=== PATIENT | male | born 1965 | race Caucasian/White ===

== ENCOUNTER 2016-09-06 17:52 | Emergency (ER) | payer SELFPAY ==
[~2016-09-06] VITALS: Ht 167.6 cm; Wt 85.7 kg
--- NOTE | 2016-09-06 18:07 | NUR ---
Venecia from [facility] due to abnormal H&H. Patient is aao3, appears in no acute distress noted. Respiration even and unlabored. Patient denies pain or discomfort. SKin is warm to touch and non diaphoretic. Afebrile. No chest pain, no n/v, no dizziness. Pt noted with ble wound. Will cont to monitor
--- NOTE | 2016-09-06 18:35 | NUR ---
iv accessed to left hand. blood sample sent to lab
[2016-09-06 18:40] LABS: BASOPHILS # (AUTO) 0.1 /CMM (0.0-0.2); BASOPHILS % (AUTO) 0.7 % (0.0-2.0); EOSINOPHILS # (AUTO) 0.2 /CMM (0.0-0.7); EOSINOPHILS % (AUTO) 2.7 % (0.0-6.0); HEMATOCRIT 26 % (39-51); HEMOGLOBIN 8.7 g/dL (13.5-17.5); LYMPHOCYTES % (AUTO) 13.6 % (20.0-44.0); MEAN CORPUSCULAR HEMOGLOBIN 27 PG (26.0-33.0); MEAN CORPUSCULAR HGB CONC 33 g/dl (31.0-36.0); MEAN CORPUSCULAR VOLUME 83 fL (80-96); MONOCYTES # (AUTO) 0.6 /CMM (0.1-1.30); MONOCYTES % (AUTO) 8.1 % (2.0-12.0); NEUTROPHILS # (AUTO) 5.6 /CMM (1.8-8.9); NEUTROPHILS % (AUTO) 74.9 % (43.0-81.0); PLATELET COUNT (AUTO) 187 /CMM (150-450); RDW COEFFICIENT OF VARIATION 19.1 (11.5-15.0); RED BLOOD CELL COUNT(AUTO) 3.19 MIL/uL (4.5-6.0); WHITE BLOOD COUNT (AUTO) 7.5 K/uL (4.3-11.0)
[2016-09-06 18:50] LABS: CALCIUM, SERUM 7.6 mg/dL (8.5-10.1); POTASSIUM 5.4 mmol/L (3.5-5.1)
[2016-09-06 18:54] LABS: INR 1.1 (0.87-1.13); PROTHROMBIN TIME 11.5 SECS (9.5-12.7)
[2016-09-06 18:56] LABS: ALBUMIN 2.4 g/dL (3.4-5.0); BILIRUBIN,DIRECT 0.1 mg/dL (0.0-0.2); BILIRUBIN,TOTAL 0.2 mg/dL (0.2-1.0); TOTAL PROTEIN, SERUM 7.2 g/dL (6.4-8.2)
--- NOTE | 2016-09-06 19:07 | NUR ---
report given to [facility] for michael
--- NOTE | 2016-09-06 19:15 | NUR ---
DR HANNON ON THE PHONE WITH PT'S PCP DR TUTTLE
--- NOTE | 2016-09-06 19:17 | NUR ---
PT REPORT RECIEVD FROM TERRENCE BARRAGAN, PT STATES HE IS DOING OK AND IS WANTING TO KNOW HOW THE LAB WORK CAME OUT. PT ON MONITOR, VSS, WILL CONTINUE TO MONITOR.
--- NOTE | 2016-09-06 19:28 | NUR ---
PAGED [employer] PANEL, DR PATEL.
[2016-09-06] MEDS ORDERED: DEXTROSE 50%-WATER 50 ML DISP.SYRIN ONE (19:30)
[2016-09-06] MEDS ORDERED: INSULIN REGULAR, HUMAN 100 UNIT/ML 10 ML VIAL IV ONE (19:30)
[2016-09-06] MEDS ORDERED: SODIUM POLYSTYRENE SULFONATE 15 G/60 ML BOTTLE PO ONE (19:30)
[2016-09-06] MEDS ORDERED: DEXTROSE 50%-WATER 50 ML DISP.SYRIN IV ONE (19:30)
[2016-09-06] MEDS ORDERED: INSULIN REGULAR, HUMAN 100 UNIT/ML 10 ML VIAL ONE (19:31)
--- NOTE | 2016-09-06 19:44 | NUR ---
PT WAS TOLD HE WAS GOING TO BE ADMITTED FOR HIGH POTASSIUM, PT STATES IF HE IS NOT BEING TRANSFUSED HE DOES NOT WANT TO BE ADMITTED, PT ADVISED NO BLOOD ORDER FOR TRANSFUSION AT THIS TIME, MD MADE AWARE AND MD STATES HE WILL TALK TO PT WILL CONTINUE TO MONITOR.
--- NOTE | 2016-09-06 19:49 | NUR ---
CALLED DR TUTTLE LEFT VOICEMAIL.
--- NOTE | 2016-09-06 19:53 | NUR ---
CALLED [facility] FOR TRANSPORTATION GOING BACK TO [facility], ETA [phone]
--- NOTE | 2016-09-06 20:38 | NUR ---
PT STATES HE HAS HAD KAYEXALATE BEFORE AND WANTS IT RIGHT BEFORE HE GOES HOME TO HIS FACILITY.
[2016-09-06] MEDS ORDERED: SODIUM POLYSTYRENE SULFONATE 15 G/60 ML BOTTLE ONE (22:20)
[2016-09-06 22:29] VITALS: BP 145/86
== END 2016-09-06 22:30 ==
LOC: ER 17:54
DX: D64.9 Anemia, unspecified (principal); E87.5 Hyperkalemia; I10 Essential (primary) hypertension; I50.9 Heart failure, unspecified; E11.9 Type 2 diabetes mellitus without complications; F32.9 Major depressive disorder, single episode, unspecified; G62.9 Polyneuropathy, unspecified; F17.210 Nicotine dependence, cigarettes, uncomplicated; E78.5 Hyperlipidemia, unspecified; Z98.890 Other specified postprocedural states
CPT/HCPCS: 36415; 80048-TC; 80076-TC; 82962-TC; 85025-TC; 85730-TC; 86850-TC; J1815